=== PATIENT | female | born 1945 | race Caucasian/White ===

== ENCOUNTER 2018-03-26 22:22 | Emergency (ER) | payer OTHER, MEDICARE ==
[~2018-03-26] VITALS: Ht 165.1 cm; Wt 70.3 kg
[2018-03-26] MEDS ORDERED: CORTISPORIN OTI10 M2 OTIC (22:50)
[2018-03-26] MEDS ORDERED: TRAMADOL 50 MG50 MG PO (22:50)
[2018-03-26 23:19] VITALS: BP 166/76
== END 2018-03-26 23:21 | disposition home or self-care (01) ==
LOC: ER 22:22
DX: H60.92 Unspecified otitis externa, left ear (principal); M26.602 Left temporomandibular joint disorder, unspecified

== ENCOUNTER → 2018-06-08 | Outpatient (CLI) | payer OTHER, MEDICARE ==
[~2018-06-08] MED LIST: CORTISPORIN OTI10 M2 OTIC; TRAMADOL 50 MG50 MG PO
== END ==
LOC: RAD 14:22
DX: Z12.31 Encounter for screening mammogram for malignant neoplasm of breast (principal)

== ENCOUNTER → 2019-06-14 | Outpatient (CLI) | payer OTHER, MEDICARE | LOC: RAD 01:13 | DX: Z12.31 Encounter for screening mammogram for malignant neoplasm of breast (principal) ==

== ENCOUNTER → 2019-07-17 | Outpatient (CLI) | payer OTHER, MEDICARE | LOC: NUC 10:42 | DX: M81.0 Age-related osteoporosis without current pathological fracture (principal); Z78.0 Asymptomatic menopausal state ==

== ENCOUNTER 2019-12-24 00:20 | Emergency (ER) | payer OTHER, MEDICARE ==
[~2019-12-24] VITALS: Ht 165.1 cm; Wt 72.6 kg
[2019-12-24] MEDS ORDERED: TRAMADOL 50 MG50 MG PO (00:33)
[2019-12-24] MEDS ORDERED: VITAMIN D21250 MC1 PO (00:34)
[2019-12-24] MEDS ORDERED: PANTOPRAZOLE SO40 M1 PO (00:35)
[2019-12-24] MEDS ORDERED: ELIQUIS5 MG PO (00:40)
[2019-12-24] MEDS ORDERED: DULOXETINE HCL30 MG PO (00:40)
[2019-12-24] MEDS ORDERED: DULOXETINE HCL60 MG PO (00:40)
[2019-12-24] MEDS ORDERED: LIPITOR 40 MG T40 M1 PO (00:40)
[2019-12-24] MEDS ORDERED: ALENDRONATE SOD70 MG PO (00:40)
[2019-12-24] MEDS ORDERED: LISINOPRIL40 MG PO (00:41)
[2019-12-24] MEDS ORDERED: NORCO 5-325 TA1 EAC1 PO (00:42)
[2019-12-24 03:20] VITALS: BP 131/54
== END 2019-12-24 03:21 | disposition home or self-care (01) ==
LOC: ER 00:20
DX: M25.461 Effusion, right knee (principal); Z96.651 Presence of right artificial knee joint; Z79.899 Other long term (current) drug therapy; Z88.6 Allergy status to analgesic agent; Z91.013 Allergy to seafood; Z86.718 Personal history of other venous thrombosis and embolism

== ENCOUNTER 2020-03-07 13:36 | Emergency (ER) | payer OTHER, MEDICARE ==
[~2020-03-07] VITALS: Ht 165.1 cm; Wt 72.6 kg
[~2020-03-07 13:36] MED LIST changes: +ALENDRONATE SOD70 MG PO; +DULOXETINE HCL30 MG PO; +DULOXETINE HCL60 MG PO; +ELIQUIS5 MG PO; +LIPITOR 40 MG T40 M1 PO; +LISINOPRIL40 MG PO; +NORCO 5-325 TA1 EAC1 PO; +PANTOPRAZOLE SO40 M1 PO; +VITAMIN D21250 MC1 PO
[2020-03-07 14:33] LABS: ABSOLUTE NEUTROPHILS 8.5 thou/uL (1.4-8.2); BASOPHILS 0.8 % (0.0-2.0); EOSINOPHILS 0.8 % (0.0-3.0); HEMATOCRIT 40.8 % (37.0-47.0); HEMOGLOBIN 13.8 gm/dL (12.0-15.0); LYMPHOCYTES 11.6 % (24.0-44.0); MCH 31.4 pg (26.0-34.0); MCHC 33.7 g/dL (28.0-37.0); MCV 93.1 fL (80.0-100.0); MONOCYTES 7.9 % (1.0-8.0); PLATELET COUNT 451 thou/uL (150-400); POLYS 78.9 % (36.0-66.0); RBC 4.39 mil/uL (4.20-5.00); RDW 12.8 % (10.5-14.5); WBC 10.7 thou/uL (4.0-11.0)
[2020-03-07 14:50] LABS: APTT 30.4 Seconds (24.5-32.8); PROTIME 10.7 Seconds (9.3-11.4)
[2020-03-07 14:51] LABS: CALCIUM 10.2 mg/dL (8.5-10.1); POTASSIUM 3.9 mmol/L (3.5-5.1)
[2020-03-07 14:56] LABS: ALBUMIN 3.9 g/dL (3.4-5.0); TOTAL PROTEIN 7.7 g/dL (6.4-8.2)
[2020-03-07] MEDS ORDERED: PROTONIX40 MG PO (15:31)
[2020-03-07 16:42] VITALS: BP 112/51
== END 2020-03-07 16:57 | disposition home or self-care (01) ==
LOC: ER 13:36
PROVIDERS: Emergency Medicine
DX: K92.2 Gastrointestinal hemorrhage, unspecified (principal); I48.20 Chronic atrial fibrillation, unspecified; Z96.651 Presence of right artificial knee joint; Z86.718 Personal history of other venous thrombosis and embolism; Z98.890 Other specified postprocedural states; Z88.1 Allergy status to other antibiotic agents; Z88.8 Allergy status to other drugs, medicaments and biological substances; Z88.5 Allergy status to narcotic agent; Z91.013 Allergy to seafood; Z79.899 Other long term (current) drug therapy; Z79.01 Long term (current) use of anticoagulants

== ENCOUNTER 2020-03-31 12:30 | Inpatient (IN) | payer OTHER, MEDICARE ==
[~2020-03-31] VITALS: Ht 165.1 cm; Wt 76.2 kg
[~2020-03-31 12:30] MED LIST changes: +PROTONIX40 MG PO
[2020-03-31 12:31] VITALS: BP 130/60
[2020-03-31 13:21] LABS: ABSOLUTE NEUTROPHILS 7.8 thou/uL (1.4-8.2); BASOPHILS 0.4 % (0.0-2.0); HEMATOCRIT 25.5 % (37.0-47.0); HEMOGLOBIN 8.6 gm/dL (12.0-15.0); LYMPHOCYTES 11.5 % (24.0-44.0); MCH 31.4 pg (26.0-34.0); MCHC 33.6 g/dL (28.0-37.0); MCV 93.6 fL (80.0-100.0); MONOCYTES 7.5 % (1.0-8.0); PLATELET COUNT 272 thou/uL (150-400); POLYS 79.6 % (36.0-66.0); RBC 2.72 mil/uL (4.20-5.00); RDW 13.4 % (10.5-14.5); WBC 9.8 thou/uL (4.0-11.0)
[2020-03-31 13:37] LABS: APTT 28.9 Seconds (24.5-32.8); PROTIME 10.1 Seconds (9.3-11.4)
[2020-03-31 14:31] LABS: CALCIUM 8.5 mg/dL (8.5-10.1); CREATININE 0.9 mg/dL (0.6-1.0)
[2020-03-31 14:37] LABS: ALBUMIN 2.9 g/dL (3.4-5.0); DIRECT BILIRUBIN 0.2 mg/dL (<0.1-0.2); TOTAL BILIRUBIN 0.7 mg/dL (0.2-1.0); TOTAL PROTEIN 5.9 g/dL (6.4-8.2)
[2020-03-31 15:27] VITALS: BP 136/56
[2020-03-31 18:28] LABS: HEMATOCRIT 22.2 % (37.0-47.0); HEMOGLOBIN 7.6 gm/dL (12.0-15.0)
[2020-03-31 18:47] LABS: ALBUMIN 2.7 g/dL (3.4-5.0); TOTAL PROTEIN 5.2 g/dL (6.4-8.2)
[2020-03-31 18:48] LABS: TSH 0.656 uIU/mL (0.358-3.740)
[2020-03-31 23:43] VITALS: BP 125/53; BP 132/50; BP 133/56; BP 140/56
[2020-04-01] VITALS (7 sets, daily range): BP systolic 91–147; BP diastolic 40–61
--- NOTE | 2020-04-01 01:31 | NUR ---
CALLED TO GIVE REPORT AND WAS TOLD RN IN A PT'S ROOM AND WILL CALL BACK
[2020-04-01] MEDS ORDERED: MAGNESIUM250 M1 PO (03:16)
[2020-04-01] MEDS ORDERED: IRON18 M1 PO (03:19)
[2020-04-01] MEDS ORDERED: FISH OIL 1,0001 EAC9 PO (03:20)
[2020-04-01] MEDS ORDERED: TURMERIC500 M2 PO (03:21)
[2020-04-01 08:38] LABS: HEMATOCRIT 25.8 % (37.0-47.0); HEMOGLOBIN 8.6 gm/dL (12.0-15.0); MCHC 33.1 g/dL (28.0-37.0); MCV 93.5 fL (80.0-100.0); RBC 2.76 mil/uL (4.20-5.00); RDW 13.8 % (10.5-14.5); WBC 12.7 thou/uL (4.0-11.0)
[2020-04-01 08:51] LABS: CALCIUM 7.8 mg/dL (8.5-10.1); CREATININE 0.7 mg/dL (0.6-1.0); POTASSIUM 3.8 mmol/L (3.5-5.1)
--- NOTE | 2020-04-01 09:28 | EKG ---
[facility] [place] [address] ELECTROCARDIOGRAM REPORT Name: KIRILL PAN Room #: 208-P ADM IN M.R.#: [id number] Admission: 03/31/20 Attend Phys: Dawood Fletcher MD Discharge: Date of : 45 Report #: [id number] THIS REPORT FOR: cc: Rebecac Dupont MD, Nora P. MD Lundgren,Travis Conley MD 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 04/01/20 0928 0739 Travis Gupta MD, [facility] /EPI
--- NOTE | 2020-04-01 10:17 | NUR ---
PT OFF UNIT TO GI LAB.
--- NOTE | 2020-04-01 13:07 | NUR ---
ORDERS RECEIVED FOR OT EVAL AND TREAT, CHART REVIEWED, SPOKE WITH PATIENT THIS A.M. ABOUT OT EVAL/SERVICES, PATIENT REPEATEDLY REFUSING DESPITE ENCOURAGEMENT AND EDUCATED SAYING SHE DID NOT NEED THERAPY HOWEVER REFUSED TO DEMONSTRATE/ PERFORM ANY ADLS/TRANSFERS. PLEASE RE CONSULT IF NEEDED, OT TO SIGN OFF AT THIS TIME D/T PATIENT NOT WANTING SERVICES.
--- NOTE | 2020-04-01 14:01 | NUR ---
CHART REVIEWED. P.T. SPOKE TO Pt WHO REFUSED ANY P.T.. Pt STATES THAT SHE GETS AROUND JUST FINE AND DOESN'T NEED OR WANT ANY P.T.. SO, WILL D/C P.T. AT THIS DATE. PLEASE RECONSULT P.T. IF Pt NEEDING P.T. SERVICES DURING THIS ADMISSION, ONCE MORE MOBILE.
--- NOTE | 2020-04-01 14:26 | 2DMMODE ---
[facility] [place] [address] 2 D/M-MODE ECHOCARDIOGRAM Name: AIDAMAILEKIRILL BROOKLYNN Room #: 208-P ADM IN M.R.#: [id number] Admission: 03/31/20 Attend Phys: Dawood Fletcher MD Discharge: Date of : 45 Report #: [id number] THIS REPORT FOR: cc: Rebecca Dupont MD, Nora P. MD Lammoglia, Francisco J. MD ~ APPROVED REPORT Study performed: 04/01/2020 13:41:41 EXAM: Comprehensive 2D, Doppler, and color-flow Echocardiogram Patient Location: Bedside Room #: 208 Status: routine BSA: 1.80 HR: 80 bpm BP: 121/40 mmHg Rhythm: Irregular Other Information Study Quality: Fair/not all measurements taken. Technically limited study due to breast implants.. Indications Afib, GI bleed, Prior watchman. HTN, HLP. 2D Dimensions IVSd: 14.08 (7-11mm) LVOT Diam: 19.42 (18-24mm) LVDd: 36.91 mm PWd: 11.48 (7-11mm) Ascending Ao: 35.27 (22-36mm) LVDs: 22.38 (25-40mm) Aortic Root: 33.61 mm Aortic Valve AoV Peak Karri.: 1.50 m/s AO Peak Gr.: 8.94 mmHg LVOT Max P.92 mmHg LVOT Max V: 0.99 m/s VANNESA Vmax: 1.96 cm2 Mitral Valve E/A Ratio: 2.1 MV Decel. Time: 110.17 ms MV E Max Karri.: 0.77 m/s [facility] [address] [address] 2 D/M-MODE ECHOCARDIOGRAM Name: VIVIANEKIRILL BROOKLYNN Room #: 208-P [facility] IN ..#: [id number] Admission: 03/31/20 Attend Phys: Dawood Fletcher, Discharge: Date of : 45 Report #: [id number] A Karri.: 0.36 m/s MV PHT: 31.95 ms IVRT: 48.44 ms Pulmonary Valve PV Peak Karri.: 1.43 m/s PV Peak Gr.: 8.20 mmHg Tricuspid Valve TR Peak Karri.: 2.80 m/s RAP Estimate: 5.00 mmHg TR Peak Gr.: 31.00 mmHg PA Pressure: 36.00 mmHg Left Ventricle The left ventricle is normal size. There is normal LV segmental wall motion. Mild basal septal hypertrophy is present. Left ventricular systolic function is normal. LVEF is 60-65%. Right Ventricle The right ventricle is normal size. The right ventricular systolic function is normal. Atria The left atrium size is normal. The right atrium size is normal. Aortic Valve The aortic valve is normal in structure. No aortic regurgitation is present. There is no aortic valvular stenosis. Mitral Valve The mitral valve is normal in structure. Mild mitral annular calcification. There is no mitral valve regurgitation noted. No evidence of mitral valve stenosis. Tricuspid Valve The tricuspid valve is normal in structure. Trace tricuspid regurgitation. Estimated PAP is 35-40mmHg. Unable to assess PA pressure. Trace tricuspid regurgitation. Pulmonic Valve The pulmonary valve is normal in structure. Trace pulmonic regurgitation. Great Vessels The aortic root is normal in size. The ascending aorta is normal in size. IVC is normal in size and collapses >50% with [facility] [address] [place] [address] 2 D/M-MODE ECHOCARDIOGRAM Name: VIVIANEKIRILLANASTACIA OVERTON Room #: 208-P ADM IN M.R.#: [id number] Admission: 03/31/20 Attend Phys: Dawood Fletcher, Discharge: Date of : 45 Report #: [id number] inspiration. Pericardium There is no pericardial effusion. <Conclusion> The left ventricle is normal size. LVEF is 60-65%. The aortic valve is normal in structure. The mitral valve is normal in structure. Mild mitral annular calcification. The tricuspid valve is normal in structure. Trace tricuspid regurgitation. Estimated PAP is 35-40mmHg. Unable to assess PA pressure. Trace tricuspid regurgitation. The pulmonary valve is normal in structure. Trace pulmonic regurgitation. There is no pericardial effusion. <ELECTRONICALLY SIGNED> By: Talib Jerome MD 04/01/20 1426 25 142 Talib Jerome MD /INF
--- NOTE | 2020-04-01 14:47 | NUR ---
Nutrition: pt admitted with GIB, ABLA and seen due to consult related to "malnutrition, low prealbumin". Pt S/P EGD this am with no acute finding. May need colonoscopy per GI. Pt reports good appetite other than 2 days prior to admit. No significant weight changes. Currently NPO. Will follow for timely diet advancement/tolerance. No nutrition intervention is warranted at this time. Does not meet our criteria for malnutrition however geriatric CAR HOPPER has diagnosed, so RD is deferring. Low nutrition risk.
--- NOTE | 2020-04-01 16:55 | NUR ---
WILL START BOWEL PREP TONIGHT AND PT WILL HAVE COLONOSCOPY IN AM. PT TAKING IN PO CLEARS WELL. GIVE ULTRAM FOR BACK PAIN. WILL CONTINUE TO ASSESS.
[2020-04-01 17:15] LABS: HEMATOCRIT 23.1 % (37.0-47.0); HEMOGLOBIN 7.8 gm/dL (12.0-15.0)
[2020-04-02 05:45] VITALS: BP 98/50
--- NOTE | 2020-04-02 07:19 | NUR ---
ASSESSMENT DOCUMENTED.PT BEEN RESTING IN NO ACUTE DISTRESS.A/OX4.VSS.PT WAS ON BOWEL PREP FOR COLONOSCOPY .PT HAVING BLOODY DIARRHEA THROUGHTOUT THE NOC WITH SOME CLOTS.CONSENT FORM HAS BEEN SIGNED.PAIN MED GIVEN FOR BACK PAIN W/RELIEF.NPO AFTER MIDNOC.WILL CONT TO MONITOR PER POC.
[2020-04-02 08:22] LABS: HEMATOCRIT 22.7 % (37.0-47.0); HEMOGLOBIN 7.6 gm/dL (12.0-15.0); MCH 31.4 pg (26.0-34.0); MCHC 33.5 g/dL (28.0-37.0); MCV 93.7 fL (80.0-100.0); RBC 2.42 mil/uL (4.20-5.00); RDW 13.1 % (10.5-14.5); WBC 12.2 thou/uL (4.0-11.0)
[2020-04-02 08:25] VITALS: BP 123/58
[2020-04-02 08:35] LABS: CALCIUM 7.9 mg/dL (8.5-10.1); CREATININE 0.6 mg/dL (0.6-1.0); MAGNESIUM 1.7 mg/dL (1.8-2.4); POTASSIUM 3.8 mmol/L (3.5-5.1)
[2020-04-02 12:53] VITALS: BP 110/52
--- NOTE | 2020-04-02 13:02 | NUR ---
ASSUMED CARE OF PT AT SHIFT CHANGE, A&0X4, SOFT SPOKEN, NOT IN PLEASANT MOOD, OFFERED CREAM FOR BOTTOM FROM FREQ STOOLS PRIOR TO SCOPE PROCEDURE, NIGHT REPORTS OFF PT DIDN'T TAKE THE FULL AMOUNT OF PREP AND THAT HER STOOLS WERE RED. THIS A.M. STILL RED, NO BROWN, SILT LIKE IN TEXTURE, PT UPSET WITH ANOTHER DAY NURSE AND ASKED HER NAME. THIS PARTICULAR NURSE HAD COME IN TO ANSWER A CALL LIGHT AND STATED PT CUSSED AT HER BECAUSE SHE WOULDN'T WIPE HER BOTTOM. PT ABLE TO DO THIS HERSELF. CALLED GI AND FOUND OUT WHEN PROCEDURE SCHEDULED. PT SAID NOT SOON ENOUGH AND COMPLAINED ABOUT THIS. ASKED FOR HER PO PAIN MED FOR CHRONIC BACK PAIN AND ASKED PHYSICIAN FOR IV PAIN MEDICATION. PT COMPLAINED FENTANYL WOULDN'T DO ANYTHING FOR HER. ACCEPTED ADMINISTRATION. REC BACK FROM GI AND THEY WERE UNABLE TO COMPLETELY VISUALIZE D/T STOOL. WILL CONTINUE TO MONITOR
[2020-04-02 15:36] VITALS: BP 117/53
[2020-04-02 17:24] LABS: HEMATOCRIT 26.5 % (37.0-47.0); HEMOGLOBIN 8.7 gm/dL (12.0-15.0)
[2020-04-02 20:36] VITALS: BP 106/51
--- NOTE | 2020-04-03 03:09 | NUR ---
PATIENT IS SLOWLY ADVANCING IN HER CARE PLAN. VITAL SIGNS STABLE WITH PATIENT HAVING NO COMPLAINTS OF NAUSEA. PATIENT DID COMPLAIN FREQUENTLY OF CHRONIC LOWER BACK PAIN WHICH SHE WAS TREATED FOR THROUGH MEDICATIONS AND NON PHARMACOLOGICAL INTERVENTION. FULLY ORIENTED, PATIENT IS ABLE TO CALL APPROPRIATELY FOR REQUESTS AND FULLY PARTICIPATE IN CARE. NO EVIDENCE OF BLEEDING NOTED. PATIENT WAS UP MULTIPLE TIMES WITH ASSISTANCE INCIDENT FREE. PATIENT APPEARS STRONG AND BALANCED WHEN AMBULATING BUT IS STANDBY ASSIST FOR NOW DUE TO ANEMIA. CONTINUE PLAN OF CARE.
[2020-04-03 05:00] VITALS: BP 110/48
[2020-04-03 05:37] LABS: HEMOGLOBIN 7.2 gm/dL (12.0-15.0); MCH 32.5 pg (26.0-34.0); MCHC 34.5 g/dL (28.0-37.0); MCV 94.4 fL (80.0-100.0); RBC 2.22 mil/uL (4.20-5.00); RDW 13.4 % (10.5-14.5); WBC 9.5 thou/uL (4.0-11.0)
[2020-04-03 05:50] LABS: CALCIUM 8.4 mg/dL (8.5-10.1); CREATININE 0.6 mg/dL (0.6-1.0); MAGNESIUM 1.9 mg/dL (1.8-2.4)
[2020-04-03 07:59] VITALS: BP 120/59
[2020-04-03 11:53] VITALS: BP 111/50
--- NOTE | 2020-04-03 13:19 | NUR ---
CM COMPLETED THE INITIAL ASSESSMENT TO DISCUSS D/C PLANNING. PT A&OX4. PT STATED SHE LIVES AT HOME ALONE. SHE HAS SUPPORTIVE NEIGHBOR AND FAMILY. PT IS SEMI-ACTIVE, SHE DRIVES AND RUNS HER OWN ERRANDS. PT HAS WALKER, GRAB BAR, SHOWER SEAT, CPAP AND CANE. PT HAD O2 APPLIED IN HER ROOM, BUT STATES SHE DOES NOT USE O2 AT HOME. PT HAS HX W.[facility] IN 2019 AND HAS BEEN TO 3 SNF IN 2019 BUT PT COULDNT RECALL THE NAME OF THEM. PT STATED HER GOAL IS TO RTRN HOME W/O HH. CM TO CONT TO FOLLOW TO ASSIST NEEDED.
[2020-04-03 16:09] VITALS: BP 107/56
--- NOTE | 2020-04-03 17:33 | NUR ---
ASSUMED CARE AT SHIFT CHANGE, ALERT AND ORIENTED X4. VSS AND SR WITH 1AVB. MEDICATED FOR GENERALIZED PAIN AND HEADACHE.PROGRESSING TOWARDS GOALS AND WILL CONTINUE TO MONITOR.
[2020-04-03 19:30] VITALS: BP 111/50
[2020-04-04 03:30] VITALS: BP 105/59
--- NOTE | 2020-04-04 03:46 | NUR ---
1900, PT ALERT AND ORIENTED. REPORTS BACK PAIN ALLEVIATE BY A HEATING PAD. PT AMBULATED X 1 AROUND THE UNIT, ACTIVITY WELL TOLERATED. VOIDING INDEPENDENTLY TO THE BEDSIDE COMMODE. NO ACTIVE BLEEDING NOTED. WILL CONTINUE TO MONITOR PT's HGB. NO OTHER CONCERNS. WILL CONTINUE TO MONITOR.
[2020-04-04 05:41] LABS: HEMATOCRIT 21.3 % (37.0-47.0); HEMOGLOBIN 7.2 gm/dL (12.0-15.0); MCHC 33.8 g/dL (28.0-37.0); MCV 94.7 fL (80.0-100.0); RBC 2.25 mil/uL (4.20-5.00); RDW 13.1 % (10.5-14.5); WBC 7.9 thou/uL (4.0-11.0)
[2020-04-04 07:45] VITALS: BP 105/59
[2020-04-04 08:00] VITALS: BP 104/57
[2020-04-04 09:07] VITALS: BP 105/59
--- NOTE | 2020-04-04 09:11 | NUR ---
PT CARE ASSUMED AT 0700. ASSESSMENT CHARTED. MEDICATION CHARTED. PT UTILIZES BSC. PT SEEN BY WADE GARCIA. PT TO BE DISCHARGED HOME.
== END 2020-04-04 11:23 | disposition home or self-care (01) | DRG 377 ==
LOC: ER 12:30 → EROBS 15:29 → 2N 15:29 → EROBS 15:42 → 2N 04-01 01:45
PROVIDERS: Nurse Practitioner; ADMIT Internal Medicine; ATTEND Internal Medicine
PROC: 30233N1 Transfusion of Nonautologous Red Blood Cells into Peripheral Vein, Percutaneous Approach (ICD-10-PCS; principal; 2020-03-31)
PROC: 0DJ08ZZ Inspection of Upper Intestinal Tract, Via Natural or Artificial Opening Endoscopic (ICD-10-PCS; 2020-04-01)
PROC: 0DJD8ZZ Inspection of Lower Intestinal Tract, Via Natural or Artificial Opening Endoscopic (ICD-10-PCS; 2020-04-02)
DX: K57.31 Diverticulosis of large intestine without perforation or abscess with bleeding (principal); E43 Unspecified severe protein-calorie malnutrition; D62 Acute posthemorrhagic anemia; K63.3 Ulcer of intestine; Z96.651 Presence of right artificial knee joint; I10 Essential (primary) hypertension; M81.0 Age-related osteoporosis without current pathological fracture; F32.9 Major depressive disorder, single episode, unspecified; I48.0 Paroxysmal atrial fibrillation; E78.00 Pure hypercholesterolemia, unspecified; E78.5 Hyperlipidemia, unspecified; Z60.2 Problems related to living alone; K64.8 Other hemorrhoids; K59.00 Constipation, unspecified; K44.9 Diaphragmatic hernia without obstruction or gangrene; K22.2 Esophageal obstruction; Z68.28 Body mass index [BMI] 28.0-28.9, adult; Z86.718 Personal history of other venous thrombosis and embolism; Z88.6 Allergy status to analgesic agent; Z91.013 Allergy to seafood; Z79.1 Long term (current) use of non-steroidal anti-inflammatories (NSAID)
CPT/HCPCS: 10081; 62110; 62900; 70005

== ENCOUNTER → 2020-06-18 | Outpatient (CLI) | payer OTHER, MEDICARE ==
[~2020-06-18] MED LIST changes: +FISH OIL 1,0001 EAC9 PO; +IRON18 M1 PO; +MAGNESIUM250 M1 PO; +TURMERIC500 M2 PO
== END ==
LOC: BC 10:41
PROVIDERS: ATTEND Family Medicine
DX: Z12.31 Encounter for screening mammogram for malignant neoplasm of breast (principal)

== ENCOUNTER → 2021-06-19 | Outpatient (CLI) | payer OTHER ==
[~2021-06-19] VITALS: Ht 165.1 cm; Wt 72.6 kg
[~2021-06-19] MED LIST changes: +B-125000 MC1 SUBLING; +BIOTIN1 MG PO; +CALCIUM500 MG PO; +DILTIAZEM ER120 MG PO; +ESCITALOPRA5 MG/5 ML PO; +FERROUS SULFATE PO; +GLUCOSAMINE &1 EACH PO; +MULTAQ 400 MG400 MG PO; +PLAVIX 75 MG TA75 MG PO; +PREDNISOLONE SO10 MG; +acetaminophen
[2021-06-19 14:20] VITALS: BP 128/79
--- NOTE | 2021-06-19 14:44 | NUR ---
Pain Clinic Assessment: 1. History of Osteoarthritis: BACK HIPS KNEES SHOULDERS HANDS ANKLES History of Rheumatoid Arthritis: 2. Height: 5 ft. 5 in. 165.1 cm. Weight: 160.0 lb. oz. 72.576 kg. Patient's BMI: 26.6 3. Vital Signs: BP: 128/79 Pulse: 77 Resp: 14 Temp: 02 Sat: 97 ECG Mon: 4. Pain Intensity: 1 5. Fall Risk: Dizziness: N Needs help standing or walking: N Fallen in the last 3 months: N Fall risk comments: 6. Patient on Blood Thinner: PLAVIX 7. History of Hypertension: Y 8. Opioid Therapy greater than 6 weeks: Opiate Contract Signed: 9. Risk Assessment Tool Provided: 5 MODERATE RISK 10. Functional Assessment Tool: 11. Recreational Drug Use: Never Drug Type: Tobacco Use: Former Smoker Tobacco Type: Amount or Packs/day: How Many Years: Alcohol Use: No Frequency: Quant:
== END ==
LOC: PAIN 10:25
PROVIDERS: ATTEND Anesthesiology Pain Medicine
DX: G89.29 Other chronic pain (principal); M19.90 Unspecified osteoarthritis, unspecified site; Z87.891 Personal history of nicotine dependence; Z88.8 Allergy status to other drugs, medicaments and biological substances; Z79.899 Other long term (current) drug therapy

== ENCOUNTER → 2021-07-30 | Outpatient (CLI) | payer OTHER | LOC: BC 15:04 | PROVIDERS: ATTEND Family Medicine | DX: Z12.31 Encounter for screening mammogram for malignant neoplasm of breast (principal); N64.89 Other specified disorders of breast ==